=== PATIENT | female | born 1965 | race Caucasian/White ===

== ENCOUNTER → 2017-11-15 | Outpatient (CLI) | payer BC ==
--- NOTE | 2017-11-16 08:45 | MAM ---
EXAM DESCRIPTION: 3D Screening BILATERAL : Digital Mammography. CLINICAL HISTORY: 52 years Female SCREENING no complaints. No family history or personal history of breast cancer. No childbirth. Postmenopausal x1 year. No HRT. Lifetime risk of developing breast cancer (Tyrer-Cuzick model)(%): 9.1 COMPARISON: Baseline study at this facility. No prior reports available. TECHNIQUE: Bilateral CC and MLO projection full-field images, Digital tomosynthesis mammographic technique. Bilateral digital 2-D full-field MLO images. CAD not utilized. FINDINGS: The breast parenchymal density pattern is: Heterogeneously dense breast tissue, which may obscure small masses. No skin thickening or nipple retraction. Bilateral axillary lymph nodes. Small group of heterogeneous calcifications in the right breast as seen on the skin surface lateral to the nipple on the CC projection. No new focal, stellate mass or density, focal asymmetry , and no suspicious microcalcifications bilaterally. IMPRESSION: Benign exam. BIRAD CATEGORY: 2 BENIGN FINDINGS. RECOMMENDATIONS: FOLLOW UP: Routine digital bilateral screening, one year interval from date Written communication explaining the IMPRESSION and follow-up, will be mailed to the patient and referring health care provider. According to the [employer], yearly mammograms are recommended starting at age 40 and continuing as long as a woman is in good health. Any breast change noted on a breast self-exam should be reported promptly to the patient's healthcare provider. Breast MRI is recommended for women with an approximately 20-25% or greater lifetime risk of breast cancer, including women with a strong family history of breast or ovarian cancer and women who have been treated for Hodgkin's disease. A negative mammographic report should not delay tissue diagnosis in patients with significant clinical history or physical findings. Extremely dense breast tissue limits the sensitivity of digital mammography. Electronically signed by: Epifanio Ham MD 11/16/2017 8:44 AM CDT
== END ==
LOC: MAMMO 13:54
PROVIDERS: ATTEND Nurse Practitioner Family
DX: Z12.31 Encounter for screening mammogram for malignant neoplasm of breast (principal)

== ENCOUNTER 2018-11-21 05:28 | Day surgery (SDC) | payer BC, OTHER ==
[2018-11-21] MEDS ORDERED: LIDOCAINE 1% 10 ML VIAL INJ ONE (07:00)
[2018-11-21] MEDS ORDERED: PROPOFOL 200 MG/20 ML VIAL IV ONE (07:00)
[2018-11-21] MEDS ORDERED: ONDANSETRON INJ 4 MG/2 ML VIAL ONE (07:00)
[2018-11-21] MEDS ORDERED: DEXAMETHASONE INJ 10 MG/ML VIAL ONE (07:00)
[2018-11-21] MEDS ORDERED: LACTATED RINGERS 1,000 ML ONE (07:09)
[2018-11-21] MEDS ORDERED: MIDAZOLAM INJ 2 MG/2 ML VIAL ONE (08:28)
--- NOTE | 2018-11-21 09:09 | OP ---
DATE OF PROCEDURE: 11/21/18 PREOPERATIVE DIAGNOSIS: 1. Screening colonoscopy. POSTOPERATIVE DIAGNOSIS: 1. Polyps. PROCEDURE: 1. Sigmoid colonoscopy, procedure terminated for retching and risk of aspiration. SURGEON: Fernando Perkins MD ANESTHESIA: General. PROCEDURE: The patient is here for screening colonoscopy. General anesthesia was induced. Digital rectal exam was normal. The colonoscope was advanced. There was some tightness in the sigmoid colon. As we got to approximately between 20 and 30 cm in the distal descending colon, there were 2 polyps, one was 1 cm and one was 1.3 cm. They were close to each other. We were able to get a hot snare around them and remove them. The first one was moderately deep, but there was no evidence of perforation. It was surrounded with the snare and elevated nicely the mucosal stalk and excised. At this point, the patient did begin retching. We began to continue the colonoscopy to about the splenic flexure and Anesthesia requested that we stop due to risk of aspiration. We got a good look at the sigmoid and up and removed those 2 polyps. I did see one small hyperplastic polyp, so we will plan on re-scope for her. She was then awakened and taken to Recovery to be discharged. #[id number] MTDD
[2018-11-21] MEDS ORDERED: PROMETHAZINE HCL INJ 25 MG/ML VIAL ONE (09:17)
[2018-11-21] MEDS ORDERED: LEVALBUTEROL NEBS 1.25 MG/3 ML VIAL NEB ONE (09:35)
[2018-11-21 14:26] VITALS: BP 126/77; TEMP 97.7; O2SAT 96
== END 2018-11-21 10:10 | disposition home or self-care (01) ==
LOC: AMB 05:28
PROVIDERS: ATTEND Surgery
DX: Z12.11 Encounter for screening for malignant neoplasm of colon (principal); K63.5 Polyp of colon; I10 Essential (primary) hypertension; F17.210 Nicotine dependence, cigarettes, uncomplicated; Z88.0 Allergy status to penicillin; Z79.899 Other long term (current) drug therapy
CPT/HCPCS: 00812; 45385; 81025; 94640; J1100; J2250; J2405; J2550; J3490; J7120; J7614